=== PATIENT | male | born 1950 | race Caucasian/White ===

== ENCOUNTER 2022-10-28 12:35 | Emergency (ER) | payer OTHER, SELFPAY ==
[2022-10-28 12:46] VITALS: BP 126/77; PULSE 63; RESP 18; TEMP 36.9; O2SAT 97; BMI 22.3
--- NOTE | 2022-10-28 12:58 | DI.US.S_ITS ---
PROCEDURE: US PERIPH VENOUS LOW EXTREM LT INDICATIONS: R/O DVT TECHNIQUE: Real-time imaging, as well as color and pulse Doppler interrogation, were performed of the lower extremity deep veins from the inguinal ligament to the popliteal fossa. COMPARISON: None. FINDINGS: The common femoral, femoral and popliteal veins are normally compressible, and free of intraluminal thrombus. Color and pulse Doppler demonstrate normal phasic intraluminal flow. There is normal augmentation response to distal compression maneuver. The greater saphenous vein at the knee level is visualized and compressible, but at the calf level is noncompressible and may represent superficial venous thrombophlebitis. IMPRESSION: No DVT found. Noncompressible greater saphenous vein at the highest level but patent and compressible more superiorly. This therefore may represent a manifestation of superficial thrombophlebitis of a portion of the greater saphenous vein below the knee level. Dictated by: Fred Iyer M.D. on 10/28/2022 at 13:46 Approved by: Fred Iyer M.D. on 10/28/2022 at 13:50
--- NOTE | 2022-10-28 15:04 | PC.NURSE ---
Left leg superficial vein feels slightly hardened per patient.
[2022-10-28 15:06] VITALS: BP 120/70; PULSE 57; RESP 18; O2SAT 98
--- NOTE | 2022-10-28 15:40 | ED.EXTPRO ---
HPI - Extremity Problem General Chief complaint: Extremity Problem,Nontraumatic Stated complaint: poss DVT Time Seen by Provider: 10/28/22 15:07 Source: patient Mode of arrival: Family Vehicle History of Present Illness HPI Narrative: Patient is a 72-year-old male history of hyperlipidemia presenting today with left leg pain. He is had some irritation little bit of bruising over left anterior lower leg. No injury. Seen previously at [facility] ED they recommended an ultrasound done unfortunately did not have an ultrasound. He is not traveled anywhere he does not have any calf pain or swelling denies any chest pain or shortness of breath. Not on any antiplatelet or anticoagulation medication. Related Data Allergies Allergy/AdvReac Type Severity Reaction Status Date / Time No Known Drug Allergies Allergy Verified 10/28/22 12:51 Review of Systems Review of Systems ROS Unobtainable: All systems reviewed & are unremarkable except as noted in HPI and below Patient History Social History Smoking Status: Never smoker Smoking Status: Never smoker alcohol intake frequency: holidays/special occasions only Substance Use Type: does not use Exam Initial Vital Signs Initial Vital Signs: Vital Signs Temperature 98.4 F 10/28/22 12:46 Pulse Rate 63 10/28/22 12:46 Respiratory Rate 18 10/28/22 12:46 Blood Pressure 126/77 10/28/22 12:46 Pulse Oximetry 97 10/28/22 12:46 Oxygen Delivery Method Room Air 10/28/22 12:46 GENERAL: Alert pleasant well-appearing 72-year-old male CARDIOVASCULAR: peripheral pulses in tact, cap refill <2 sec RESPIRATORY: No respiratory distress, speaks in full sentences without difficulty EXTREMITIES: Normal range of motion, no clubbing or edema. Neurovascularly intact Left leg lower extremity some varicose like vein with some mild erythema no swelling minimal pain to touch no calf pain or swelling NEUROLOGICAL: Cranial nerves II through XII grossly intact. Normal gait and speech. SKIN: Warm, dry, no petechiae, no rashes or lesions. Course Orders Ordered: ED Orders 10/28/22 12:58 US perip venous low extrem lt Stat Vital Signs Vital signs: Vital Signs - 8 hr 10/28/22 12:46 10/28/22 15:06 Temperature 98.4 F Pulse Rate 63 57 L Respiratory Rate 18 18 Blood Pressure 126/77 120/70 Pulse Oximetry 97 98 Oxygen Delivery Method Room Air Room Air MDM - Extremity (Nontraumatic) Imaging Data US - DVT: Radiologist's Impression: PROCEDURE:? US PERIPH VENOUS LOW EXTREM LT ? INDICATIONS:? R/O DVT ? TECHNIQUE:? Real-time imaging, as well as color and pulse Doppler interrogation, were performed of the lower extremity deep veins from the inguinal ligament to the popliteal fossa.? ? COMPARISON:? None. ? FINDINGS:? The common femoral, femoral and popliteal veins are normally compressible, and free of intraluminal thrombus.? Color and pulse Doppler demonstrate normal phasic intraluminal flow.? There is normal augmentation response to distal compression maneuver. ? ? The greater saphenous vein at the knee level is visualized and compressible, but at the calf level is noncompressible and may represent superficial venous thrombophlebitis. ? IMPRESSION:? No DVT found.? Noncompressible greater saphenous vein at the highest level but patent and compressible more superiorly.? This therefore may represent a manifestation of superficial thrombophlebitis of a portion of the greater saphenous vein below the knee level. ? ? Dictated by: Fred Iyer M.D. on 10/28/2022 at 13:46 ? ? [facility] Narrative Medical decision making narrative: Patient is a healthy 72-year-old male presenting to left leg pain. Concern for DVT. Ultrasound is negative for DVT is found to have thrombophlebitis. This clinically correlates. Supportive care only. No need for further workup no evidence of cellulitis. Discharge Plan Departure Patient Disposition: Home Clinical Impression: Superficial thrombophlebitis Instructions: DI for Superficial Thrombophlebitis Activity Restrictions/Additional Instructions: *You have been diagnosed with superficial thrombophlebitis *What to do: At this time elevate and ice leg as needed. Recommend compression socks *Continue to take medications as directed Ibuprofen 600 mg every 6 hours if needed for [id number] pain *Follow up with your primary care provider in 2-3 days or call [phone] *Return to ER if you should have increasing pain swelling redness or any new, worsening or concerning symptoms Referrals: Nikko Bertrand MD [Primary Care Provider] - Stand Alone Forms: Patient Portal/API
== END 2022-10-28 15:55 | disposition home or self-care (01) ==
PROVIDERS: Emergency Provider Emergency Medicine; PCP Family Medicine
DX: I80.02 Phlebitis and thrombophlebitis of superficial vessels of left lower extremity (principal)
CPT/HCPCS: 93971; 99283